=== PATIENT | male | born 1940 | race Two or more races ===

== ENCOUNTER 2019-08-23 08:31 | Outpatient (CLI) | payer OTHER ==
[2019-09-15] MEDS ORDERED: LANTUS SOL100 UNIT/1 SUBCUTANEO (13:16)
[2019-09-15] MEDS ORDERED: HYDRALAZINE HCL50 MG PO (13:17)
[2019-09-15] MEDS ORDERED: SINGULAIR10 MG PO (13:17)
[2019-09-15] MEDS ORDERED: AVAPRO300 MG PO (13:17)
[2019-09-15] MEDS ORDERED: TRIGLIDE160 MG PO (13:17)
[2019-09-15] MEDS ORDERED: URECHOLINE10 M1 PO (13:18)
[2019-09-15] MEDS ORDERED: UROXATRAL10 MG PO (13:18)
[2019-09-15] MEDS ORDERED: ADALAT CC90 MG PO (13:18)
[2019-09-15] MEDS ORDERED: sertraline PO (13:19)
[2019-09-15] MEDS ORDERED: BUMETANIDE1 MG PO (13:19)
[2019-09-15] MEDS ORDERED: ATORVASTATIN CA20 MG PO (13:20)
== END 2019-08-23 14:48 | disposition home or self-care (01) ==
LOC: NUCLEAR 08:31
DX: E21.3 Hyperparathyroidism, unspecified (principal)
CPT/HCPCS: 78072; A9500

== ENCOUNTER → 2019-08-25 | Outpatient (CLI) | payer OTHER ==
[~2019-08-25] MED LIST: ADALAT CC90 MG PO; ATORVASTATIN CA20 MG PO; AVAPRO300 MG PO; BUMETANIDE1 MG PO; HYDRALAZINE HCL50 MG PO; LANTUS SOL100 UNIT/1 SUBCUTANEO; SINGULAIR10 MG PO; TRIGLIDE160 MG PO; URECHOLINE10 M1 PO; UROXATRAL10 MG PO; sertraline PO
== END | disposition home or self-care (01) ==
LOC: RAD 13:33
DX: M25.551 Pain in right hip (principal); M25.552 Pain in left hip

== ENCOUNTER 2019-09-06 09:41 | Outpatient (CLI) | payer OTHER ==
[2019-09-15] MEDS ORDERED: LANTUS SOL100 UNIT/1 SUBCUTANEO (13:16)
[2019-09-15] MEDS ORDERED: SINGULAIR10 MG PO (13:17)
[2019-09-15] MEDS ORDERED: AVAPRO300 MG PO (13:17)
[2019-09-15] MEDS ORDERED: HYDRALAZINE HCL50 MG PO (13:17)
[2019-09-15] MEDS ORDERED: TRIGLIDE160 MG PO (13:17)
[2019-09-15] MEDS ORDERED: ADALAT CC90 MG PO (13:18)
[2019-09-15] MEDS ORDERED: UROXATRAL10 MG PO (13:18)
[2019-09-15] MEDS ORDERED: URECHOLINE10 M1 PO (13:18)
[2019-09-15] MEDS ORDERED: BUMETANIDE1 MG PO (13:19)
[2019-09-15] MEDS ORDERED: sertraline PO (13:19)
[2019-09-15] MEDS ORDERED: ATORVASTATIN CA20 MG PO (13:20)
== END 2019-09-06 09:53 | disposition home or self-care (01) ==
LOC: LAB 09:41 → RAD 09:41 → LAB 09:53
DX: D64.89 Other specified anemias (principal); E88.89 Other specified metabolic disorders; D68.8 Other specified coagulation defects; N39.0 Urinary tract infection, site not specified; Z22.322 Carrier or suspected carrier of Methicillin resistant Staphylococcus aureus; Z76.89 Persons encountering health services in other specified circumstances; I49.8 Other specified cardiac arrhythmias

== ENCOUNTER 2019-09-18 10:57 | Outpatient (CLI) | payer OTHER | END 2019-09-18 11:31 | disposition home or self-care (01) | LOC: LAB 10:57 | DX: D64.89 Other specified anemias (principal); Z22.322 Carrier or suspected carrier of Methicillin resistant Staphylococcus aureus; D68.8 Other specified coagulation defects ==